=== PATIENT | male | born 1945 | race Caucasian/White ===

== ENCOUNTER 2017-06-17 17:20 | Inpatient (IN) | payer MEDICARE, OTHER ==
[~2017-06-17] VITALS: Ht 182.9 cm; Wt 72.7 kg
[2017-06-17] MEDS ORDERED: IPRATROPIUM/ALBUTEROL SULFATE 3 ML SOLUTION IH ONE (17:55)
[2017-06-17 18:01] LABS: BASOPHILS % (AUTO) 0.6 % (0.0-5.0); EOSINOPHILS % (AUTO) 1.1 % (0.0-8.0); HEMATOCRIT 39.7 % (42-54); LYMPHOCYTES % (AUTO) 17.4 % (21.0-51.0); MEAN CORPUSCULAR HEMOGLOBIN 30.4 pg (27.0-33.0); MEAN CORPUSCULAR HGB CONC 33.3 g/dL (32.0-36.0); MEAN CORPUSCULAR VOLUME 91.4 fL (79-99); MONOCYTES % (AUTO) 8.1 % (3.0-13.0); NEUTROPHILS % (AUTO) 72.8 % (40.0-77.0); NUCLEATED RED BLOOD CELLS 0.1 % (0.0-0.19); PLATELET COUNT (AUTO) 166 K/uL (130-400); RED BLOOD CELL COUNT(AUTO) 4.34 MIL/uL (4.50-6.20); RED CELL DISTRIBUTION WIDTH 18.6 % (11.0-15.5); WHITE BLOOD COUNT (AUTO) 5.6 K/uL (4.8-10.8)
[2017-06-17 18:18] LABS: POTASSIUM 3.9 mmol/L (3.5-5.1)
[2017-06-17 18:22] LABS: ALBUMIN 3.2 g/dL (3.5-5.0); BILIRUBIN,TOTAL 0.6 mg/dL (0.2-1.0); TOTAL PROTEIN, SERUM 6.3 g/dL (6.0-8.3)
[2017-06-17] MEDS ORDERED: FUROSEMIDE 10 MG/ML 4ML VIAL ONE (19:11)
[2017-06-17] MEDS ORDERED: POTASSIUM CHLORIDE 20 MEQ ERTAB PO PRN (20:00)
[2017-06-17] MEDS ORDERED: POTASSIUM CHLORIDE 10% ELIXIR 20 MEQ/15 ML UDCUP PO PRN (20:00)
[2017-06-17 20:23] LABS: APPEARANCE,URINE Clear (CLEAR); BILIRUBIN,URINE Negative (NEGATIVE); COLOR,URINE Yellow (YELLOW); GLUCOSE, URINE (UA) Negative (NEGATIVE); KETONES,URINE Negative (NEGATIVE); LEUKOCYTE ESTERASE ,URINE Negative (NEGATIVE); NITRATE,URINE Negative (NEGATIVE); OCCULT BLOOD,URINE Negative (NEGATIVE); PROTEIN,URINE Negative (NEGATIVE); UROBILINOGEN,URINE 0.2 mg/dL (0.2-1.0)
[2017-06-17 21:29] VITALS: BP 128/78
[2017-06-17 23:30] VITALS: BP 130/97
[2017-06-18] VITALS (7 sets, daily range): BP systolic 90–132; BP diastolic 63–85
[2017-06-18] MEDS ORDERED: APIX5TAB PO (02:50)
[2017-06-18] MEDS ORDERED: SENN8.6T52 PO (02:50)
[2017-06-18] MEDS ORDERED: SERT50TA12 PO (02:50)
[2017-06-18] MEDS ORDERED: LEVE500T19 PO (02:50)
[2017-06-18] MEDS ORDERED: DONE10TA43 PO (02:50)
[2017-06-18] MEDS ORDERED: MEMA10TA20 PO (02:50)
[2017-06-18] MEDS ORDERED: DIVA-76 PO (02:50)
[2017-06-18 05:58] LABS: CREATININE 0.9 mg/dL (0.5-1.5); POTASSIUM 3.4 mmol/L (3.5-5.1)
[2017-06-18 06:12] LABS: BASOPHILS % (AUTO) 0.7 % (0.0-5.0); EOSINOPHILS % (AUTO) 2.1 % (0.0-8.0); HEMATOCRIT 35.9 % (42-54); LYMPHOCYTES % (AUTO) 14.9 % (21.0-51.0); MEAN CORPUSCULAR HEMOGLOBIN 31.2 pg (27.0-33.0); MEAN CORPUSCULAR HGB CONC 34.7 g/dL (32.0-36.0); MONOCYTES % (AUTO) 6.9 % (3.0-13.0); NEUTROPHILS % (AUTO) 75.4 % (40.0-77.0); PLATELET COUNT (AUTO) 149 K/uL (130-400); RED BLOOD CELL COUNT(AUTO) 3.99 MIL/uL (4.50-6.20); RED CELL DISTRIBUTION WIDTH 18.5 % (11.0-15.5)
[2017-06-18 06:13] LABS: B-TYPE NATRIURETIC PEPTIDE 1030 pg/mL (0-100)
[2017-06-18] MEDS: POTASSIUM CHLORIDE 20MEQ/100ML 100 ML IV PRN (06:26)
[2017-06-18] MEDS: LIDOCAINE HCL-MPF 1% 2ML VIAL IVP PRN (06:26)
[2017-06-18] MEDS: IPRATROPIUM/ALBUTEROL SULFATE 3 ML SOLUTION IH SCH ×4 (07:00→18:46)
[2017-06-18] MEDS ORDERED: FUROSEMIDE 10 MG/ML 2ML VIAL IV SCH (09:00)
[2017-06-18] MEDS: PANTOPRAZOLE SODIUM 40 MG TABLET.DR PO SCH (10:00)
[2017-06-18] MEDS: ENOXAPARIN SODIUM 40 MG/0.4 ML SYRINGE SQ SCH (10:02)
[2017-06-18] MEDS: LEVOFLOXACIN 500 MG/D5W 100 ML 100 ML IV SCH (12:29)
[2017-06-18] MEDS: METRONIDAZOLE 500MG/100ML BAG 100 ML IV SCH ×2 (14:49→21:29)
[2017-06-18] MEDS: APIXABAN 5 MG TABLET PO SCH (20:14)
[2017-06-18] MEDS: DIVALPROEX SODIUM 250 MG TABLET.DR PO SCH (20:14)
[2017-06-18] MEDS: DONEPEZIL HCL 5 MG TAB PO SCH (20:15)
[2017-06-18] MEDS: SENNOSIDES 8.6 MG TABLET PO SCH (20:15)
[2017-06-18] MEDS: LEVETIRACETAM 500 MG TABLET PO SCH (20:15)
[2017-06-18] MEDS: FUROSEMIDE 10 MG/ML 4ML VIAL IVP SCH (20:16)
[2017-06-19] MEDS: IPRATROPIUM/ALBUTEROL SULFATE 3 ML SOLUTION IH SCH ×5 (00:06→23:23)
[2017-06-19 03:28] VITALS: BP 121/65
[2017-06-19] MEDS: METRONIDAZOLE 500MG/100ML BAG 100 ML IV SCH ×3 (05:24→23:50)
[2017-06-19 05:57] LABS: CREATININE 1.2 mg/dL (0.5-1.5); MAGNESIUM 1.8 mg/dL (1.80-2.40); POTASSIUM 3.4 mmol/L (3.5-5.1)
[2017-06-19] MEDS: POTASSIUM CHLORIDE 20MEQ/100ML 100 ML IV PRN (06:35)
[2017-06-19] MEDS: LIDOCAINE HCL-MPF 1% 2ML VIAL IVP PRN (06:35)
[2017-06-19 07:50] VITALS: BP 106/74
[2017-06-19] MEDS: FUROSEMIDE 10 MG/ML 4ML VIAL IVP SCH (08:09)
[2017-06-19] MEDS: LEVETIRACETAM 500 MG TABLET PO SCH ×2 (08:10→20:58)
[2017-06-19] MEDS: MEMANTINE HCL 5 MG TABLET PO SCH (08:10)
[2017-06-19] MEDS: PANTOPRAZOLE SODIUM 40 MG TABLET.DR PO SCH (08:10)
[2017-06-19] MEDS: ENOXAPARIN SODIUM 40 MG/0.4 ML SYRINGE SQ SCH (08:13)
[2017-06-19] MEDS: SERTRALINE HCL 50 MG TABLET PO SCH (08:17)
[2017-06-19] MEDS: APIXABAN 5 MG TABLET PO SCH ×2 (08:17→20:58)
[2017-06-19 12:05] VITALS: BP 97/62
[2017-06-19] MEDS: LEVOFLOXACIN 500 MG/D5W 100 ML 100 ML IV SCH (12:41)
[2017-06-19 16:16] VITALS: BP 99/57
[2017-06-19] MEDS: LACTULOSE 20 GM/30 ML UDCUP PO PRN (17:36)
[2017-06-19 19:40] VITALS: BP 97/68
[2017-06-19] MEDS: SENNOSIDES 8.6 MG TABLET PO SCH (20:58)
[2017-06-19] MEDS: DONEPEZIL HCL 5 MG TAB PO SCH (20:58)
[2017-06-19] MEDS: DIVALPROEX SODIUM 250 MG TABLET.DR PO SCH (20:58)
[2017-06-20] VITALS (7 sets, daily range): BP systolic 96–109; BP diastolic 56–82
[2017-06-20 05:13] LABS: CREATININE 1.1 mg/dL (0.5-1.5); MAGNESIUM 1.9 mg/dL (1.80-2.40); POTASSIUM 3.8 mmol/L (3.5-5.1)
[2017-06-20] MEDS: METRONIDAZOLE 500MG/100ML BAG 100 ML IV SCH ×3 (05:30→23:28)
[2017-06-20] MEDS: IPRATROPIUM/ALBUTEROL SULFATE 3 ML SOLUTION IH SCH ×4 (06:24→23:51)
[2017-06-20] MEDS: SERTRALINE HCL 50 MG TABLET PO SCH (09:00)
[2017-06-20] MEDS: PANTOPRAZOLE SODIUM 40 MG TABLET.DR PO SCH (09:00)
[2017-06-20] MEDS ORDERED: FUROSEMIDE 40 MG TABLET PO SCH (09:00)
[2017-06-20] MEDS: ENOXAPARIN SODIUM 40 MG/0.4 ML SYRINGE SQ SCH (10:12)
[2017-06-20] MEDS: LEVETIRACETAM 500 MG TABLET PO SCH ×2 (10:12→21:36)
[2017-06-20] MEDS: MEMANTINE HCL 5 MG TABLET PO SCH (10:12)
[2017-06-20] MEDS: APIXABAN 5 MG TABLET PO SCH ×2 (10:12→21:36)
[2017-06-20] MEDS ORDERED: SODIUM CHLORIDE 3% FOR INHALATION 4 ML/AMP VIAL.NEB IH ONE ×2 (10:15→22:02)
[2017-06-20] MEDS: FUROSEMIDE 10 MG/ML 4ML VIAL IV SCH ×2 (12:42→23:30)
[2017-06-20] MEDS: LEVOFLOXACIN 500 MG/D5W 100 ML 100 ML IV SCH (12:42)
[2017-06-20] MEDS: LACTULOSE 20 GM/30 ML UDCUP PO PRN (18:36)
[2017-06-20] MEDS: DIVALPROEX SODIUM 250 MG TABLET.DR PO SCH (21:37)
[2017-06-20] MEDS: SENNOSIDES 8.6 MG TABLET PO SCH (21:37)
[2017-06-20] MEDS: DONEPEZIL HCL 5 MG TAB PO SCH (21:37)
[2017-06-21 04:00] VITALS: BP 104/65
[2017-06-21] MEDS: IPRATROPIUM/ALBUTEROL SULFATE 3 ML SOLUTION IH SCH ×4 (06:27→23:20)
[2017-06-21] MEDS: METRONIDAZOLE 500MG/100ML BAG 100 ML IV SCH ×3 (06:40→22:03)
[2017-06-21] MEDS ORDERED: SODIUM CHLORIDE 3% FOR INHALATION 4 ML/AMP VIAL.NEB IH ONE (06:45)
[2017-06-21 06:51] LABS: BASOPHILS % (AUTO) 1.1 % (0.0-5.0); EOSINOPHILS % (AUTO) 3.5 % (0.0-8.0); LYMPHOCYTES % (AUTO) 21.8 % (21.0-51.0); MEAN CORPUSCULAR HEMOGLOBIN 31.8 pg (27.0-33.0); MEAN CORPUSCULAR HGB CONC 35.6 g/dL (32.0-36.0); MEAN CORPUSCULAR VOLUME 89.4 fL (79-99); MONOCYTES % (AUTO) 8.8 % (3.0-13.0); NEUTROPHILS % (AUTO) 64.8 % (40.0-77.0); PLATELET COUNT (AUTO) 152 K/uL (130-400); RED BLOOD CELL COUNT(AUTO) 3.69 MIL/uL (4.50-6.20); RED CELL DISTRIBUTION WIDTH 18.2 % (11.0-15.5); WHITE BLOOD COUNT (AUTO) 5.2 K/uL (4.8-10.8)
[2017-06-21 06:54] LABS: CREATININE 1.2 mg/dL (0.5-1.5); POTASSIUM 3.9 mmol/L (3.5-5.1)
[2017-06-21 07:33] LABS: B-TYPE NATRIURETIC PEPTIDE 199 pg/mL (0-100)
[2017-06-21 08:12] VITALS: BP 115/68
[2017-06-21] MEDS: MEMANTINE HCL 5 MG TABLET PO SCH (10:08)
[2017-06-21] MEDS: ENOXAPARIN SODIUM 40 MG/0.4 ML SYRINGE SQ SCH (10:08)
[2017-06-21] MEDS: LEVETIRACETAM 500 MG TABLET PO SCH ×2 (10:08→20:26)
[2017-06-21] MEDS: APIXABAN 5 MG TABLET PO SCH ×2 (10:08→20:26)
[2017-06-21] MEDS: PANTOPRAZOLE SODIUM 40 MG TABLET.DR PO SCH (10:08)
[2017-06-21] MEDS: FUROSEMIDE 10 MG/ML 4ML VIAL IV SCH (10:09)
[2017-06-21] MEDS: SERTRALINE HCL 50 MG TABLET PO SCH (10:10)
[2017-06-21 11:33] VITALS: BP 111/66
[2017-06-21] MEDS: LEVOFLOXACIN 500 MG/D5W 100 ML 100 ML IV SCH (13:00)
[2017-06-21 15:56] VITALS: BP 102/53
[2017-06-21 20:00] VITALS: BP 103/42
[2017-06-21] MEDS: DONEPEZIL HCL 5 MG TAB PO SCH (20:26)
[2017-06-21] MEDS: SENNOSIDES 8.6 MG TABLET PO SCH (20:27)
[2017-06-21] MEDS: DIVALPROEX SODIUM 250 MG TABLET.DR PO SCH (20:27)
[2017-06-22] VITALS: BP 95/61
[2017-06-22 04:00] VITALS: BP 101/60
[2017-06-22 05:07] LABS: BASOPHILS % (AUTO) 0.8 % (0.0-5.0); EOSINOPHILS % (AUTO) 2.3 % (0.0-8.0); HEMATOCRIT 32.8 % (42-54); LYMPHOCYTES % (AUTO) 22.7 % (21.0-51.0); MEAN CORPUSCULAR HEMOGLOBIN 30.1 pg (27.0-33.0); MEAN CORPUSCULAR HGB CONC 33.8 g/dL (32.0-36.0); MONOCYTES % (AUTO) 8.9 % (3.0-13.0); NEUTROPHILS % (AUTO) 65.3 % (40.0-77.0); PLATELET COUNT (AUTO) 152 K/uL (130-400); RED BLOOD CELL COUNT(AUTO) 3.69 MIL/uL (4.50-6.20); WHITE BLOOD COUNT (AUTO) 4.4 K/uL (4.8-10.8)
[2017-06-22 05:21] LABS: CREATININE 1.1 mg/dL (0.5-1.5); POTASSIUM 3.7 mmol/L (3.5-5.1)
[2017-06-22] MEDS: METRONIDAZOLE 500MG/100ML BAG 100 ML IV SCH ×2 (05:54→13:53)
[2017-06-22] MEDS: IPRATROPIUM/ALBUTEROL SULFATE 3 ML SOLUTION IH SCH ×2 (06:49→11:37)
[2017-06-22 08:25] VITALS: BP 100/63
[2017-06-22] MEDS ORDERED: FUROSEMIDE 40 MG TABLET PO SCH (09:00)
[2017-06-22] MEDS: LEVETIRACETAM 500 MG TABLET PO SCH (09:21)
[2017-06-22] MEDS: APIXABAN 5 MG TABLET PO SCH (09:21)
[2017-06-22] MEDS: SERTRALINE HCL 50 MG TABLET PO SCH (09:22)
[2017-06-22] MEDS: MEMANTINE HCL 5 MG TABLET PO SCH (09:22)
[2017-06-22] MEDS: ENOXAPARIN SODIUM 40 MG/0.4 ML SYRINGE SQ SCH (09:22)
[2017-06-22] MEDS: PANTOPRAZOLE SODIUM 40 MG TABLET.DR PO SCH (09:22)
[2017-06-22 11:07] VITALS: BP 88/52
[2017-06-22] MEDS: LEVOFLOXACIN 500 MG/D5W 100 ML 100 ML IV SCH (11:34)
[2017-06-22 16:40] VITALS: BP 103/50
== END 2017-06-22 17:20 | DRG 291 ==
LOC: EDH 17:20 → EDHIP 19:28 → 3DH 20:56
PROVIDERS: ADMIT Family Medicine; ATTEND Family Medicine
DX: I50.9 Heart failure, unspecified (principal); J69.0 Pneumonitis due to inhalation of food and vomit; E87.0 Hyperosmolality and hypernatremia; I48.91 Unspecified atrial fibrillation; F03.90 Unspecified dementia, unspecified severity, without behavioral disturbance, psychotic disturbance, mood disturbance, and anxiety; W18.39XA Other fall on same level, initial encounter; I25.10 Atherosclerotic heart disease of native coronary artery without angina pectoris; S00.93XA Contusion of unspecified part of head, initial encounter; S80.11XA Contusion of right lower leg, initial encounter; I45.9 Conduction disorder, unspecified; Z86.73 Personal history of transient ischemic attack (TIA), and cerebral infarction without residual deficits; Z86.74 Personal history of sudden cardiac arrest; Z79.01 Long term (current) use of anticoagulants; Z95.1 Presence of aortocoronary bypass graft; Y93.89 Activity, other specified; Y92.098 Other place in other non-institutional residence as the place of occurrence of the external cause; Y99.8 Other external cause status; Z91.14 Patient's other noncompliance with medication regimen
CPT/HCPCS: 36415; 70450; 71045; 71046; 73562; 80048; 80053; 81003; 83735; 83880; 84484; 85025; 87633; 92610; 93970; 94640; 94664; 97039; J1650; J1940; J1956; J3480; J3490

== ENCOUNTER 2017-08-25 17:42 | Observation (INO) | payer OTHER ==
[~2017-08-25 17:42] MED LIST: APIX5TAB PO; DIVA-76 PO; DONE10TA43 PO; LEVE500T19 PO; MEMA10TA20 PO; SENN8.6T52 PO; SERT50TA12 PO
[2017-08-25 18:17] LABS: BASOPHILS % (AUTO) 1.3 % (0.0-5.0); EOSINOPHILS % (AUTO) 3.7 % (0.0-8.0); HEMATOCRIT 33.8 % (42-54); LYMPHOCYTES % (AUTO) 25.9 % (21.0-51.0); MEAN CORPUSCULAR HEMOGLOBIN 30.9 pg (27.0-33.0); MEAN CORPUSCULAR HGB CONC 34.3 g/dL (32.0-36.0); MEAN CORPUSCULAR VOLUME 90.1 fL (79-99); MONOCYTES % (AUTO) 7.6 % (3.0-13.0); NEUTROPHILS % (AUTO) 61.5 % (40.0-77.0); NUCLEATED RED BLOOD CELLS 0.1 % (0.0-0.19); PLATELET COUNT (AUTO) 161 K/uL (130-400); RED BLOOD CELL COUNT(AUTO) 3.75 MIL/uL (4.50-6.20); RED CELL DISTRIBUTION WIDTH 16.2 % (11.0-15.5); WHITE BLOOD COUNT (AUTO) 4.7 K/uL (4.8-10.8)
[2017-08-25 18:25] LABS: CREATININE 0.9 mg/dL (0.5-1.5)
[2017-08-25 18:29] LABS: BILIRUBIN,TOTAL 0.3 mg/dL (0.2-1.0)
[2017-08-25 23:11] VITALS: BP 117/67
[2017-08-25] MEDS ORDERED: MAG HYDROX/AL HYDROX/SIMETH ES 30 ML SUSP UDCUP PO PRN (23:45)
[2017-08-25] MEDS ORDERED: CLONIDINE HCL 0.1 MG TABLET PO PRN (23:45)
[2017-08-25] MEDS ORDERED: POTASSIUM CHLORIDE 20 MEQ ERTAB PO PRN (23:45)
[2017-08-25] MEDS ORDERED: ONDANSETRON HCL 4 MG/2 ML VIAL IVP PRN (23:45)
[2017-08-25] MEDS ORDERED: DIPHENHYDRAMINE HCL 25 MG CAPSULE PO PRN (23:45)
[2017-08-25] MEDS ORDERED: NITROGLYCERIN 0.4 MG SL TAB SL PRN (23:45)
[2017-08-25] MEDS ORDERED: LACTULOSE 20 GM/30 ML UDCUP PO PRN (23:45)
[2017-08-25] MEDS ORDERED: GUAIFENESIN-DM 200/20 MG 10 ML PO PRN (23:45)
[2017-08-25] MEDS ORDERED: VALPROATE SOD 250 MG/5 ML (PO) PO SCH (23:45)
[2017-08-25] MEDS ORDERED: DiphenhydrAMINE HCL 50 MG/ML VIAL IVP PRN (23:45)
[2017-08-25] MEDS ORDERED: ACETAMINOPHEN 325 MG TAB PO PRN ×2 (23:45)
[2017-08-25] MEDS ORDERED: POTASSIUM CHLORIDE 10% ELIXIR 20 MEQ/15 ML UDCUP PO PRN (23:45)
[2017-08-25] MEDS ORDERED: LIDOCAINE HCL-MPF 1% 2ML VIAL IJ PRN (23:45)
[2017-08-25] MEDS ORDERED: POTASSIUM CHLORIDE 20MEQ/100ML 100 ML IV PRN (23:45)
[2017-08-25] MEDS ORDERED: SODIUM CHLORIDE 0.9% 10 ML VIAL IVP SCH (23:45)
[2017-08-25] MEDS ORDERED: GUAIFENESIN SUGAR-FREE 100 MG/5 ML UDCUP PO PRN (23:45)
[2017-08-25] MEDS ORDERED: ZOLPIDEM TARTRATE 5 MG TAB PO PRN (23:45)
[2017-08-26 00:44] LABS: APPEARANCE,URINE Clear (CLEAR); BILIRUBIN,URINE Negative (NEGATIVE); COLOR,URINE Yellow (YELLOW); GLUCOSE, URINE (UA) Negative (NEGATIVE); KETONES,URINE Negative (NEGATIVE); LEUKOCYTE ESTERASE ,URINE Trace (NEGATIVE); NITRATE,URINE Negative (NEGATIVE); OCCULT BLOOD,URINE Negative (NEGATIVE); PH,URINE 6.5 (5.0-8.0); PROTEIN,URINE Negative (NEGATIVE)
[2017-08-26 01:00] LABS: RBC,URINE 0-1 /HPF (0-1)
[2017-08-26 01:01] LABS: BACTERIA,URINE Rare /HPF (None Seen)
[2017-08-26 03:32] VITALS: BP 104/68
[2017-08-26 03:48] LABS: HEMATOCRIT 31.5 % (42-54); MEAN CORPUSCULAR HEMOGLOBIN 30.7 pg (27.0-33.0); MEAN CORPUSCULAR HGB CONC 34.3 g/dL (32.0-36.0); MEAN CORPUSCULAR VOLUME 89.5 fL (79-99); PLATELET COUNT (AUTO) 135 K/uL (130-400); RED BLOOD CELL COUNT(AUTO) 3.52 MIL/uL (4.50-6.20); RED CELL DISTRIBUTION WIDTH 16.6 % (11.0-15.5); WHITE BLOOD COUNT (AUTO) 4.1 K/uL (4.8-10.8)
[2017-08-26 04:01] LABS: CREATININE 0.9 mg/dL (0.5-1.5); POTASSIUM 3.6 mmol/L (3.5-5.1)
[2017-08-26 07:00] VITALS: BP 129/79
[2017-08-26] MEDS ORDERED: ISOVUE-370 50ML VIAL IV ONE (08:10)
[2017-08-26] MEDS: LEVETIRACETAM 500 MG TABLET PO SCH ×2 (09:02→20:26)
[2017-08-26] MEDS: MEMANTINE HCL 5 MG TABLET PO SCH (09:02)
[2017-08-26] MEDS: SERTRALINE HCL 50 MG TABLET PO SCH (09:03)
[2017-08-26 11:00] VITALS: BP 114/60
[2017-08-26 15:32] VITALS: BP 108/65
[2017-08-26 19:00] VITALS: BP 100/67
[2017-08-26] MEDS ORDERED: DONEPEZIL HCL 5 MG TAB PO SCH (21:00)
[2017-08-26] MEDS ORDERED: SENNOSIDES 8.6 MG TABLET PO SCH (21:00)
[2017-08-26] MEDS ORDERED: DIVALPROEX SODIUM 250 MG TABLET.DR PO SCH (21:00)
[2017-08-26 23:00] VITALS: BP 107/67
[2017-08-27 03:00] VITALS: BP 108/63
[2017-08-27 08:00] VITALS: BP 118/68
[2017-08-27] MEDS: LEVETIRACETAM 500 MG TABLET PO SCH (09:04)
[2017-08-27] MEDS: MEMANTINE HCL 5 MG TABLET PO SCH (09:04)
[2017-08-27] MEDS: SERTRALINE HCL 50 MG TABLET PO SCH (09:04)
== END 2017-08-27 17:00 ==
LOC: EDH 17:42 → EDHIP 22:15 → 3BH 22:41
PROVIDERS: ADMIT Family Medicine; ATTEND Family Medicine
DX: R41.82 Altered mental status, unspecified (principal); K90.2 Blind loop syndrome, not elsewhere classified; I25.10 Atherosclerotic heart disease of native coronary artery without angina pectoris; F03.90 Unspecified dementia, unspecified severity, without behavioral disturbance, psychotic disturbance, mood disturbance, and anxiety; Z86.73 Personal history of transient ischemic attack (TIA), and cerebral infarction without residual deficits; Z95.0 Presence of cardiac pacemaker; Z95.1 Presence of aortocoronary bypass graft
CPT/HCPCS: 36415 ×2; 70450; 70460; 80048; 80053; 80164; 80177; 81001; 82948; 85025; 85027; 93306; 93880; 99291; G0378 ×43; Q9967